=== PATIENT | female | born 1975 | race American Indian/Alaskan Native ===

== ENCOUNTER 2020-07-05 08:57 | Outpatient (CLI) | payer BC ==
--- NOTE | 2020-07-05 12:34 | Mammography Report ---
BILATERAL DIGITAL SCREENING with TOMOSYNTHESIS MAMMOGRAM WITH CAD HISTORY: SCREENING MAMMO TECHNIQUE: Routine digital mammographic imaging performed. Tomosynthesis images were processed and r eviewed. This examination was interpreted with the benefit of Computer-aided Detection analysis. COMPARISON: 07/02/2019, 07/01/2018, 06/27/2017. FINDINGS: Breast Density: scattered fibroglandular appearance of the breast tissue. Digital CC and MLO views demonstrate questionable area of distortion in the right lateral breast is n oted. This is best seen on tomosynthesis image 41. No suspicious findings within the left breast. IMPRESSION: Questionable area of architectural distortion within the right lateral breast at posterior depth. Thi s is best seen on the tomosynthesis images. Additional mammographic views including spot CC, rolled CCs, and full ML are recommended with possible subsequent targeted ultrasound. BIRADS 0-Incomplete: Needs additional imaging evaluation NOTE: WE WILL RECALL THE PATIENT FOR THIS ADDITIONAL EVALUATION. FURTHER INFORMATION: According to the [employer], yearly mammograms are recommend ed starting at age 40 and continuing as long as a woman is in good health. Clinical Breast Exams shou ld be part of a periodic health exam-about every 3 years for women in their 20s and 30s and every yea r for women 40 and over. Breast self exam is an option for women starting in their 20s. Any breast ch rosa noted on a breast self exam should be reported promptly to the patient's healthcare provider. Br east MRI is recommended for women with an approximately 20-25% or greater lifetime risk of breast can cer, including women with a strong family history of breast or ovarian cancer and women who have been treated for Hodgkin's disease. A negative Mammography report should not discourage follow up or biopsy of a clinically significant f inding and/or abnormality. Dense breast tissue may obscure small neoplasms. The patient will be entered into a reminder system with a target due date for the next screening mamm ogram. Signer Name: Adrian Carlin MD Signed: 07/05/2020 12:33 PM Workstation Name: [id number]
== END 2020-07-05 08:58 | disposition home or self-care (01) ==
LOC: SPVWC 08:57
PROVIDERS: ATTEND Surgery
DX: Z12.31 Encounter for screening mammogram for malignant neoplasm of breast (principal); N64.89 Other specified disorders of breast
CPT/HCPCS: 77063; 77067

== ENCOUNTER 2020-07-12 10:35 | Outpatient (CLI) | payer BC ==
--- NOTE | 2020-07-12 12:26 | Ultrasound Report ---
RIGHT DIGITAL DIAGNOSTIC MAMMOGRAM WITH CAD CONVENTIONAL, 07/12/2020 RIGHT LIMITED BREAST ULTRASOUND CLINICAL INFORMATION / INDICATION: Abnormal screening mammogram TECHNIQUE: Digital right mammographic imaging was performed. Spot compression views were obtained. Li mited ultrasound was performed. This examination was interpreted with the benefit of Computer-Aided D etection (CAD) analysis. COMPARISON: Screening mammography 07/02/2019, 07/05/2020 FINDINGS: Breast Density: The breasts are heterogeneously dense, which may obscure small masses. MAMMOGRAPHIC FINDINGS: No dominant mass, suspicious calcifications, or architectural distortion in th e right breast. The area of possible distortion seen only on the cc view recently, best visualized on tomographic imaging, does not appear to be present on today's multiple views using conventional meth ods though including spot and rolled views. ULTRASOUND FINDINGS: Targeted ultrasound evaluation was performed of the area of interest. Only den se breast tissue is seen in the region of interest. IMPRESSION: Area of concern appears to resolve. Follow up recommendation: 6 month follow-up right mammogram including 3-D imaging BI-RADS Category 1: Negative. A "normal" or negative report should not discourage follow up or biopsy of a clinically significant f inding. A written summary of these findings will be mailed to the patient. The patient will be entered into a mammography reporting system which will generate a reminder letter for the patient's next appointmen t at the appropriate interval. According to the [employer], yearly mammograms are recommended starting at age 40 and continuing as long as a woman is in good health. Breast MRI is recommended for women with an john roximately 20-25% or greater lifetime risk of breast cancer, including women with a strong family his tory of breast or ovarian cancer and women who have been treated for Hodgkin's disease. Signer Name: Khoa Loera MD Signed: 07/12/2020 12:22 PM Workstation Name: [id number]
== END 2020-07-12 10:36 | disposition home or self-care (01) ==
LOC: MAMMO 10:35
PROVIDERS: ATTEND Surgery
DX: R92.8 Other abnormal and inconclusive findings on diagnostic imaging of breast (principal)

== ENCOUNTER 2020-08-02 10:48 | Outpatient (CLI) | payer BC ==
--- NOTE | 2020-08-02 13:48 | Magnetic Resonance Report ---
Bilateral breast MR without and with contrast. History: Recent abnormal right breast mammogram, patient at high risk for breast malignancy based upo n family history. Comparison: 07/05/2020, 07/12/2020. Technique: Multiplanar multisequence MR images of the breasts were obtained before and after the intr avenous administration of 15 mL of clariscan contrast agent. The patient reported mild swelling at th e left antecubital fossa IV site following the administration of contrast. She was evaluated by Dr. José Miguel briggs who noted very mild swelling in this area. The MRI images show a normal amount of intravenous cont rast present within the vasculature and if any extravasation occurred, it is felt to be a small amoun t. She was instructed to apply warm compresses to the area and elevate the access site above the hear t. She was given our contact number and encouraged to call should she have any concerns. Additionally , if the area worsens and she is unable to contact us, she was instructed to present to the emergency department. Post processing analysis and review was performed on a separate computer workstation. Findings: Breast composition is scattered fibroglandular. There is moderate background parenchymal enhancement within both breasts. Artifact from suspected median sternotomy wires are noted. No discrete enhancing mass, dominant focus, or other abnormal enhancement is identified within either breast. Specifically, no abnormal enhancement is noted within the right lateral breast at the site o f suspected area of architectural distortion noted on prior comparison imaging. No abnormal axillary or internal mammary lymph nodes. Incidentally noted cardiomegaly. Impression: No evidence of breast malignancy. BIRADS 1: Negative. A normal MRI does not exclude the presence of some forms of breast malignancy as literature reports s uggest that some forms of ductal carcinoma in situ or lobular carcinoma, particularly, may not be det ected on MRI. The sensitivity and specificity of MRI for cancers under 5 mm may be reduced. MRI does not replace the recommendation for annual conventional mammographic evaluation and should be used as an adjunct to mammography and physical examination as necessary. Signer Name: Adrian Carlin MD Signed: 08/02/2020 1:44 PM Workstation Name: [id number]
== END 2020-08-02 10:49 | disposition home or self-care (01) ==
LOC: SPVIMAG 10:48
PROVIDERS: ATTEND Surgery
DX: R92.8 Other abnormal and inconclusive findings on diagnostic imaging of breast (principal); Z80.3 Family history of malignant neoplasm of breast
CPT/HCPCS: A9575; C8908; 77049

== ENCOUNTER 2021-01-03 10:37 | Outpatient (CLI) | payer BC ==
--- NOTE | 2021-01-04 14:35 | Mammography Report ---
DIGITAL DIAGNOSTIC MAMMOGRAM WITH CAD WITH TOMOSYNTHESIS, 01/03/2021 CLINICAL INFORMATION / INDICATION: Follow up questionable abnormality TECHNIQUE: Digital right mammographic imaging was performed. This examination was interpreted with the benefit of Computer-aided Detection analysis. COMPARISON: Right diagnostic mammogram 07/12/2020, screening mammogram 07/05/2020 FINDINGS: Breast Density: The breasts are heterogeneously dense, which may obscure small masses. No abnormalities are seen. Specifically, no significant distortion is noted. IMPRESSION: No mammographic evidence of malignancy. Follow up recommendation: Routine BI-RADS Category 1: Negative. A "normal" or negative report should not discourage follow up or biopsy of a clinically significant f inding. A written summary of these findings will be mailed to the patient. The patient will be entered into a mammography reporting system which will generate a reminder letter for the patient's next appointmen t at the appropriate interval. According to the [employer], yearly mammograms are recommended starting at age 40 and continuing as long as a woman is in good health. Breast MRI is recommended for women with an john roximately 20-25% or greater lifetime risk of breast cancer, including women with a strong family his tory of breast or ovarian cancer and women who have been treated for Hodgkin's disease. Signer Name: Khoa Loera MD Signed: 01/04/2021 2:31 PM Workstation Name: [id number]
== END 2021-01-03 10:38 | disposition home or self-care (01) ==
LOC: SPVWC 10:37
PROVIDERS: ATTEND Surgery
DX: R92.8 Other abnormal and inconclusive findings on diagnostic imaging of breast (principal)
CPT/HCPCS: 77065; G0279